=== PATIENT | male | born 1960 | race Caucasian/White ===

== ENCOUNTER 2018-06-05 08:36 | Outpatient (RCR) | payer MEDICARE | END 2018-09-03 | disposition home or self-care (01) | LOC: CARD 08:36 | PROVIDERS: ATTEND Internal Medicine Interventional Cardiology | DX: I48.0 Paroxysmal atrial fibrillation (principal) ==

== ENCOUNTER → 2018-06-05 | Outpatient (CLI) | payer MEDICARE | LOC: CARD 09:20 | PROVIDERS: ATTEND Internal Medicine Interventional Cardiology | DX: E78.5 Hyperlipidemia, unspecified (principal); I48.0 Paroxysmal atrial fibrillation; I10 Essential (primary) hypertension; I08.1 Rheumatic disorders of both mitral and tricuspid valves | CPT/HCPCS: 93306 ==

== ENCOUNTER → 2018-07-07 | Outpatient (CLI) | payer MEDICARE ==
[~2018-07-07] MED LIST: CATHETER FLUSH 10 ML SYR IV PRN; REGADENOSON 0.4 MG/5 ML SYR (LEXISCAN) IV ONE
== END ==
LOC: CARD 11:28
PROVIDERS: ATTEND Internal Medicine Interventional Cardiology
DX: I48.0 Paroxysmal atrial fibrillation (principal); I10 Essential (primary) hypertension; E78.5 Hyperlipidemia, unspecified
CPT/HCPCS: 78452; 93017

== ENCOUNTER → 2020-10-10 | Outpatient (CLI) | payer MEDICARE | LOC: CARD 14:00 | PROVIDERS: ATTEND Internal Medicine Cardiovascular Disease | DX: I34.0 Nonrheumatic mitral (valve) insufficiency (principal); I51.7 Cardiomegaly; I48.0 Paroxysmal atrial fibrillation; I27.21 Secondary pulmonary arterial hypertension | CPT/HCPCS: 93306 ==

== ENCOUNTER 2020-10-17 10:04 | Outpatient (CLI) | payer MEDICARE | END 2020-10-17 10:27 | LOC: SLEEP 10:04 | PROVIDERS: ATTEND Otolaryngology Otolaryngology/Facial Plastic Surgery | DX: G47.33 Obstructive sleep apnea (adult) (pediatric) (principal) | CPT/HCPCS: G0399 ==

== ENCOUNTER 2020-12-20 08:54 | Day surgery (SDC) | payer MEDICARE ==
[~2020-12-20] VITALS: Ht 190 cm; Wt 120.0 kg
[2020-12-20] VITALS (9 sets, daily range): BP systolic 93–142; BP diastolic 7–101
--- OUTSIDE RECORDS SUMMARY | 2020-12-20 08:59 | XMS REPORT | Clinical Summary ---
Author Author [facility] Organization [facility] Address Unknown Phone Unavailable Care Team Providers [facility] Name Role Phone Elva Pittman DO Unavailable Unavailable Becca Joseph MD Unavailable Source Comments Some departments are not documenting in the electronic medical record. If you d o not see the information that you expected, contact [facility] Management department at [phone] for further assistan ce in locating additional records.[facility] Allergies Comments Active Allergy Reactions Severity Noted Date Allergy recorded in SMS: Codeine~Reactions: VOMITING Codeine 07/02/2005 Allergy recorded in SMS: Penicillin~Reactions: RASH Penicillins 07/02/2005 Medications End Date Status Medication Sig Dispensed Refills Start Date Active hydrocodone/acetaminophen Take 1-2 Tabs 120 0 200 (VICODIN) 5/500 mg tablet by mouth 8 Every 6 Hours as needed for Pain. Active MS CONTIN 30 mg tablet Take 1 Tab by 0 mouth Twice Daily. Active VALIUM 2 mg tablet Take 1 Tab by 0 mouth Three Times Daily. Active RELAFEN PO Take 1 Tab by 0 mouth Twice Daily. Active trazodone (DESYREL) 50 mg Take 1 Tab by 0 tablet mouth At Bedtime Daily. Active Problems Problem Noted Date Back pain 08/11/2007 Overview: Formatting of this note might be differ ent from the original. CHRONIC Surgical History Surgery Date Site/Laterality Comments HX TONSILLECTOMY 1963 HX BACK SURGERY [id number] 4 SURGERIES Medical History Medical History Date Comments Back pain 08/11/2007 CHRONIC Pneumonia 06/1998 Stomach irritation 11/1974 FH: Mir Syndrome Family History Medical History Relation Name Comments Heart Disease Father Arthritis-rheumatoid Sister Relation Name Status Comments Father (Age 69) Mother Alive Sister Alive Sister Social History Date Tobacco Use Types Packs/Day Years Used Never Smoker Comments Alcohol Use Standard Drinks/Week Yes 0 (1 standard drink = 0.6 o z pure alcohol) Sex Assigned at Date Recorded Not on file Last Filed Vital Signs Not on file Plan of Treatment Health Maintenance Due Date Last Done Comments HIV SCREENING 1973 DTAP/TDAP VACCINES (1 - 1976 Tdap) PHYSICAL (COMPREHENSIVE) 1976 EXAM COLORECTAL CANCER 2008 SCREENING SHINGLES RECOMBINANT 2008 VACCINE (1 of 2) INFLUENZA VACCINE 09/18/2020 HEPATITIS C SCREENING Completed 07/12/2005 Results Not on filefrom Last 3 Months Advance Directives Patient Housing Inspectors Explanation Type Date Recorded Advance Directives and Living Will
[2020-12-20] MEDS ORDERED: NS IV 1000 ML 1,000 ML IV SCH ×2 (09:00→13:00)
[2020-12-20] MEDS ORDERED: LIDOCAINE 1% INJ 20 ML 20 ML VIAL ONE (09:01)
[2020-12-20] MEDS ORDERED: HEParin (CATH LAB) 2,000 ML IV ONE (09:02)
[2020-12-20] MEDS ORDERED: NS IV 1000 ML 1,000 ML ONE (09:02)
[2020-12-20 09:28] LABS: HEMATOCRIT 47 % (40-54); HEMOGLOBIN 15.5 g/dL (13.3-17.7); MEAN CORPUSCULAR HEMOGLOBIN 28 pg (25-34); MEAN CORPUSCULAR HGB CONC 33 g/dL (32-36); MEAN CORPUSCULAR VOLUME 85 fL (80-99); MEAN PLATELET VOLUME 9.6 fL (9.0-12.2); PLATELET COUNT 298 10^3/uL (130-400); WHITE BLOOD COUNT 11.5 10^3/uL (4.3-11.0)
[2020-12-20 09:45] LABS: PROTHROMBIN TIME PATIENT 13.5 SEC (12.2-14.7)
[2020-12-20 09:54] LABS: ALBUMIN 4.3 GM/DL (3.2-4.5); CALCIUM 10.2 MG/DL (8.5-10.1); CREATININE SERUM 1.35 MG/DL (0.60-1.30); POTASSIUM 4.3 MMOL/L (3.6-5.0); TOTAL PROTEIN 8.4 GM/DL (6.4-8.2)
[2020-12-20] MEDS ORDERED: APIX5TAB PO (09:56)
[2020-12-20] MEDS ORDERED: NF-BISOP5 PO (09:56)
[2020-12-20] MEDS ORDERED: PRAV20TA3 PO (09:56)
[2020-12-20] MEDS ORDERED: TIZA4TAB4 PO (09:56)
[2020-12-20] MEDS ORDERED: SUMA100T3 PO (09:56)
[2020-12-20] MEDS ORDERED: MORP15TA PO (09:56)
[2020-12-20] MEDS ORDERED: GABA300C PO (09:56)
[2020-12-20] MEDS ORDERED: SERT-412 PO (09:56)
[2020-12-20] MEDS ORDERED: fentaNYL INJ 100 MCG/2 ML AMP ONE (12:01)
[2020-12-20] MEDS ORDERED: MIDAZOLAM 5 MG/5 ML (VERSED) VIAL ONE (12:02)
[2020-12-20] MEDS ORDERED: meTOprolol 5 MG/5 ML (LOPRESSOR) VIAL ONE (12:47)
--- NOTE | 2020-12-20 12:51 | Cardiac Procedure Note-CS/ASA ---
Pre-Procedure Note Pre-Op Procedure Note H&P Reviewed The H&P was reviewed, patient examined and no changes noted. Date H&P Reviewed: Dec 20, 2020 Time H&P Reviewed: 12:10 Conscious Sedation Pre-Proced Time 12:10 ASA Score 3 For ASA 3 and 4: Consider anesthesia and medical clearance. Also, for patients with a history of failed moderate sedation consider anesthesia. Airway Lungs Heart ASA score ASA 1: a normal healthy patient ASA 2: a patient with a mild systemic disease (mid diabetes, controlled hypertension, obesity ASA 3: a patient with a severe systemic disease that limits activity (angina, COPD, prior Myocardial infarction) ASA 4: a patient with an incapacitating disease that is a constant threat to life (CHF, renal failure) ASA 5: a moribund patient not expected to survive 24 hrs. (ruptured aneurysm) ASA 6: a declared brain- patient whose organs are being harvested. For emergent operations, add the letter E after the classification Mallampati Classification Grade 2 Sedation Plan Analgesia, Amnesia, Plan communicated to team members, Discussed options with patient/fam, Discussed risks with patient/fam The patient is an appropriate candidate to undergo the planned procedure, sedation, and anesthesia. The patient immediately re-assessed prior to indication. WALTER PARK MD FACP FAC CCDS Dec 20, 2020 12:51
--- NOTE | 2020-12-20 12:55 | Discharge Inst-Cardiology ---
Discharge Inst-Cardiac Discharge Medications Continued Medications: Apixaban (Eliquis) 5 Mg Tablet 5 MG PO BID, TAB Bisoprolol Fumarate (Bisoprolol Fumarate) 5 Mg Tablet 5 MG PO BID, TAB Gabapentin (Neurontin) 300 Mg Capsule 300 MG PO QID, CAP Morphine Sulfate (Morphine Sulfate IR Tablet) 15 Mg Tablet 15 MG PO TID for 7 Days, TAB Pravastatin Sodium (Pravastatin Sodium) 20 Mg Tablet 20 MG PO DAILY, TAB Sertraline HCl (Sertraline HCl) 25 Mg Tablet 25 MG PO DAILY, TAB Sumatriptan Succinate (Sumatriptan Succinate) 100 Mg Tablet 100 MG PO Q12H for Headache MDD 200, TAB Tizanidine HCl (Tizanidine HCl) 4 Mg Tablet 4 MG PO TID, TAB WALTER PARK MD FACP FAC CCDS Dec 20, 2020 12:55
--- NOTE | 2020-12-20 12:56 | Discharge Inst-Post CATH ---
Discharge Inst-CATH/EP Post Cardiac Cath/EP D/C Inst Follow Up/Plan F/u with Dr Mccullough in 1-2 weeks ACTIVITY * Go Home directly and rest. * Limit activity of the leg (or wrist if it was used) for 7 days including aerobics, swimming, jogging, bicycling, etc. * Restrict stair-climbing for 7 days if possible, if not, climb up with your non-cath leg, then bring together on the same step. * Avoid lifting, pushing, pulling or excessive movement of the affected e xtremity for 7 days. * Customary sexual activity may be resumed after 2 days-use caution not to use a position that strains or causes pain to the affected extremity. * No driving for 24 hours. * NO SMOKING. * Avoid straining for bowel movements for 7 days. * Gentle walking on level ground is allowed. * Returning to work will depend on the type of procedure and the results. Your doctor will discuss this with you. CALL YOUR DOCTOR FOR ANY OF THE FOLLOWING: *If bleeding from the puncture site occurs- Apply gentle pressure to site with clean cloth and call your doctor or EMS. * If a knot or lump forms under the skin, increases in size, or causes pain. * If bruising appears to be worsening or moving further down your leg instead of disappearing. * Temperature above 101 F. CARE OF YOUR GROIN INCISION; * Bruising or purple discoloration of the skin near the puncture site is common. * You may shower only, no bathtub bathing for 5 days. Be careful to avoid slipping as your leg may feel stiff. * If a closure device was used on your femoral artery, please see the attached guide regarding care of the device and your leg. * Leave dressing on FOR 24 hours. CARE OF YOUR WRIST INCISION; * Bruising or purple discoloration of the skin near the puncture site is common. * You may shower. * DO NOT submerge wrist. * Leave dressing on FOR 24 hours. WALTER MCCULLOUGH MD [facility] CCDS Dec 20, 2020 12:56
[2020-12-20] MEDS ORDERED: PATIENT MAY USE OWN MEDS, ALL PO SCH (13:00)
--- NOTE | 2020-12-20 18:00 | CARDIAC CATHETERIZATION ---
DATE OF SERVICE: 12/20/2020 CARDIAC CATHETERIZATION REPORT INDICATION FOR PROCEDURE: The patient is a 60-year-old gentleman, who has palpitations. An event monitor showed atrial fibrillation 9% of the time and there were also a few brief runs of wide complex tachycardia. Cardiac catheterization was recommended for further evaluation. Informed consent was obtained. DESCRIPTION OF PROCEDURE: He was brought to the cardiac catheterization laboratory in a fasting state. Right groin was prepared and draped in the usual sterile fashion. Lidocaine 1% was infused to local anesthesia. Modified Seldinger technique was used to advance a 5-Italian sheath in the right femoral artery, 5-Italian JL4 catheter for left coronary angiography, 5-Italian JR4 catheter for right coronary angiography, and 5-Italian pigtail catheter was used for left heart catheterization. Left ventricular angiography was not performed. This was to conserve contrast, given the patient's baseline renal insufficiency. Vigorous perioperative hydration was carried out beginning before the procedure, continuing during the procedure and after the procedure. This was to reduce the risk of contrast nephropathy. Angiography of the right femoral artery was carried out through the sheath and Mynx was used to achieve hemostasis. He tolerated the procedure well. HEMODYNAMICS: Left ventricular end-diastolic pressure following coronary angiography was 9 mmHg. There is no significant pressure gradient on pullback across the aortic valve. Ascending aortic pressure was 108/66 with a mean of 79 mmHg. CORONARY ANGIOGRAPHY: Left main coronary artery is free of significant disease. Left anterior descending artery has 30% to 40% proximal stenosis. Left circumflex artery has 40% to 50% mid vessel stenosis. Right coronary artery is dominant and does not exhibit significant disease. CONCLUSIONS: 1. Mild coronary artery disease. 2. Normal left ventricular end-diastolic pressure. DISCUSSION AND RECOMMENDATIONS: Based on the results of the study, it appears appropriate to continue a conservative approach. Risk factor modification has been reviewed. Outpatient followup is advised. Job ID: [id number] DocumentID: [id number] Dictated Date: 12/20/2020 13:02:49 Early Childhood Educator Aide Date: 12/20/2020 17:59:56 Dictated By: WALTER PARK MD, MA, FACP, FACC,
== END 2020-12-20 16:15 | disposition home or self-care (01) ==
LOC: CATH 08:54 → SDC 13:14 → CATH 16:15
PROVIDERS: ATTEND Internal Medicine Cardiovascular Disease
DX: I25.10 Atherosclerotic heart disease of native coronary artery without angina pectoris (principal); I48.0 Paroxysmal atrial fibrillation; E78.5 Hyperlipidemia, unspecified; I10 Essential (primary) hypertension; I47.2 Ventricular tachycardia; I34.0 Nonrheumatic mitral (valve) insufficiency; G47.33 Obstructive sleep apnea (adult) (pediatric); Z79.01 Long term (current) use of anticoagulants; Z79.899 Other long term (current) drug therapy; Z88.5 Allergy status to narcotic agent; Z88.6 Allergy status to analgesic agent; Z88.0 Allergy status to penicillin; Z11.2 Encounter for screening for other bacterial diseases
CPT/HCPCS: 80053; 80061; 85027; 85610; 85730; 87081; 93458; C1760; C1894; 36415